=== PATIENT | male | born 1955 | race Two or more races ===

== ENCOUNTER 2020-03-27 10:33 | Day surgery (SDC) | payer OTHER ==
[~2020-03-27] VITALS: Ht 175.3 cm; Wt 74.8 kg
[~2020-03-27 10:33] MED LIST: ASPI-404 PO; ATOR40TA52 PO; DULA1INJ SC; ISOS30TA17 PO; LOSA25TA38 PO; METF-370 PO; METO-159 PO
[2020-03-27] MEDS ORDERED: ceFAZolin 1GM VL ONE (11:29)
[2020-03-27] MEDS ORDERED: LIDOCAINE 1% HCL (LOCAL ANESTH.) INJ 20ML MDV ONE (11:30)
[2020-03-27] MEDS ORDERED: LIDOCAINE W/ EPINEPHRINE 1 % INJ 30ML ONE (11:30)
[2020-03-27] MEDS ORDERED: VANCOMYCIN HCL 1000 MG VL ONE (12:12)
[2020-03-27] MEDS ORDERED: GENTAMICIN SULF 80 MG/2 ML VIAL ONE (12:12)
[2020-03-27] MEDS ORDERED: NEOSTIGMINE 1 MG/ML INJ (10mg/10ML VIAL) IV ONE (12:17)
[2020-03-27] MEDS ORDERED: GLYCOPYRROLATE 0.2 MG/ML 1ML VIAL IV ONE (12:17)
[2020-03-27] MEDS ORDERED: fentaNYL CITRATE 100 MCG/2 ML VL ONE (12:19)
[2020-03-27] MEDS ORDERED: MIDAZOLAM HCL 1MG/1ML-2 ML VIAL ONE (12:19)
[2020-03-27] MEDS ORDERED: PROPOFOL 10 MG/ML 20 ML IV ONE (12:26)
[2020-03-27] MEDS ORDERED: BUPIVACAINE 0.25% INJ 50ML VIAL ONE (13:26)
[2020-03-27] MEDS ORDERED: fentaNYL CITRATE 100 MCG/2 ML VL IV ONE (13:58)
[2020-03-27] MEDS ORDERED: KETOROLAC TROMETH 30 MG/ML 1ML VIAL IV ONE (14:00)
[2020-03-27] MEDS ORDERED: fentaNYL CITRATE 100 MCG/2 ML VL IV PRN (14:00)
[2020-03-27] MEDS ORDERED: ePHEDrine SULFATE 50 MG/ML AMP IV PRN (14:00)
[2020-03-27] MEDS ORDERED: hydrALAZINE HCL 20 MG/ML VL IV PRN (14:00)
[2020-03-27] MEDS ORDERED: ONDANSETRON HCL 4 MG/2 ML VIAL IV PRN (14:00)
[2020-03-27 14:26] VITALS: BP 115/70
== END 2020-03-27 14:50 | disposition home or self-care (01) ==
LOC: SUR 10:33
PROVIDERS: ATTEND Urology
DX: N52.9 Male erectile dysfunction, unspecified (principal); I10 Essential (primary) hypertension; E11.9 Type 2 diabetes mellitus without complications; Z85.46 Personal history of malignant neoplasm of prostate; Z98.890 Other specified postprocedural states; Z79.899 Other long term (current) drug therapy; Z95.5 Presence of coronary angioplasty implant and graft; Z79.84 Long term (current) use of oral hypoglycemic drugs; Z79.82 Long term (current) use of aspirin; Z11.59 Encounter for screening for other viral diseases
CPT/HCPCS: 54405; 82962; C1813; J0690; J1580; J2001; J2250; J2704; J3010; J3370; J3490; J7030; J7050; U0003